=== PATIENT | male | born 1950 | race Hispanic/Latino ===

== ENCOUNTER 2020-01-27 12:04 | Emergency (ER) | payer MEDICARE, OTHER ==
[~2020-01-27] VITALS: Ht 170.2 cm; Wt 83.0 kg
--- NOTE | 2020-01-27 12:39 | Emergency Department Note ---
History of Present Illnes History of Present Illness Chief Complaint: COVID PUI History of Present Illness This is a 69 year old male hx of htn went to his PCP for regular check up 5 days ago, started on BP meds but he could not tolerate the side effect. He then lost his sense of smell 3 days ago, body ache, no f/c no SOB. Arrival Mode: Car Onset (how long ago): day(s) Radiation: Reports non-radiation Severity: moderate Onset quality: gradual Progression: waxing and waning Relieving factors: none Exacerbating factors: none Treatments prior to arrival: none Previous service: medications given Past Medical/Family History Physician Review I have reviewed the patient's past medical and family history. Any updates have been documented here. Past Medical History Past Medical History: Hypertension Past Surgical History: None Social History Smoking Cessation: Unknown if ever smoked Any Illegal Drug Use: No TB Exposure/Symptoms: No Physically hurt or threatened: No Family History Family history of heart diseas: No Review of Systems Review of Systems Constitutional: Reports malaise EENTM: Reports no symptoms Cardiovascular: Reports no symptoms Respiratory: Reports no symptoms Gastrointestinal: Reports no symptoms Genitourinary: Reports no symptoms Musculoskeletal: Reports no symptoms Integumentary: Reports no symptoms Neurological: Reports other (loss of taste for 3 days) Psychological: Reports no symptoms Endocrine: Reports no symptoms Hematological/Lymphatic: Reports no symptoms Physical Exam Related Data Vital signs reviewed: Yes Physical Exam CONSTITUTIONAL Constitutional: Present well-developed, Present well-nourished HENT HENT: Present normocephalic, Present atraumatic, Present oropharynx clear/moist, Present nose normal HENT L/R: Present left ext ear normal, Present right ext ear normal EYES Eyes: Reports PERRL, Reports conjunctivae normal NECK Neck: Present ROM normal PULMONARY Pulmonary: Present effort normal, Present breath sounds normal CARDIOVASCULAR Cardiovascular: Present regular rhythm, Present heart sounds normal, Present capillary refill normal, Present normal rate GASTROINTESTINAL Abdominal: Present soft, Present nontender, Present bowel sounds normal GENITOURINARY Genitourinary: Present exam deferred SKIN Skin: Present warm, Present dry MUSCULOSKELETAL Musculoskeletal: Present ROM normal NEUROLOGICAL Neurological: Present alert, Present oriented x 3, Present no gross motor or sensory deficits PSYCHOLOGICAL Psychological: Present mood/affect normal, Present judgement normal Results Laboratory Lab results reviewed: Yes Laboratory comments CBC OK Procedures 12 Lead ECG Interpretation ECG Interpretation : ECG: ECG 1 Land Surveyor Assistant: Interpreted by ED physician Date: Jan 27, 2020 Time: 12:38 Rhythm: sinus rhythm Rate: normal QRS axis: normal ST segments normal: Yes Other findings: LVH Clinical Impression: abnormal ECG Assessment & Plan Medical Decision Making MDM htn urgency Assessment & Plan Final Impression: (1) Hypertensive urgency (2) COVID-19 Depart Disposition: HOME, SELF-long term Meds Active Scripts Nifedipine (PROCARDIA XL) 30 Mg Tab.er.24, 30 MG PO DAILY, #60 TAB Prov:JAYMIE OTERO MD 01/27/20 Atenolol (ATENOLOL) 50 Mg Tablet, 1 TAB PO DAILY for 60 Days Prov:JAYMIE OTERO MD 01/27/20 JAYMIE OTERO MD Jan 27, 2020 12:39
[2020-01-27] MEDS ORDERED: DEXAMETHASONE SOD PHOS 10 MG/1 ML VIAL IV ONE (12:45)
[2020-01-27] MEDS ORDERED: HYDRALAZINE HCL 20 MG/ML VIAL IV ONE (12:45)
[2020-01-27] MEDS ORDERED: PROCARDIA XL30 MG PO (14:07)
[2020-01-27] MEDS ORDERED: ATENOLOL50 MG PO (14:07)
--- NOTE | 2020-01-27 14:14 | Diagnostic Imaging Report ---
EXAMINATION: CXR 1 VEW - HOPD INDICATION: Hypertension COMPARISON: None FINDINGS: LINES/TUBES:None LUNGS:The lungs are well-inflated. No focal consolidation or pulmonary edema. PLEURA:No pleural effusion or pneumothorax. MEDIASTINUM:The cardiomediastinal silhouette appears normal in size and shape. BONES/SOFT TISSUES:No acute osseous injury. ABDOMEN:No free air under the diaphragm. IMPRESSION: No focal pneumonia or pulmonary edema. Signed by: Reid Aguero MD on 01/27/2020 2:10 PM
[2020-01-27] MEDS ORDERED: POTASSIUM CHLORIDE 20 MEQ TAB CR PO STA (14:16)
[2020-01-27 17:17] VITALS: BP 182/89
--- NOTE | 2020-01-28 08:53 | NUR ---
Positive results called by Dr. Robb.
[2020-01-28] MEDS ORDERED: AMLODIPINE BESYLATE 10 MG TAB PO SCH (09:00)
== END 2020-01-27 15:44 | disposition home or self-care (01) ==
LOC: FSED 12:04
DX: U07.1 COVID-19 (principal); I16.0 Hypertensive urgency; R94.31 Abnormal electrocardiogram [ECG] [EKG]
CPT/HCPCS: 71045; 80053; 82553; 84484; 85025; 87635; 93005; 99284; J0360; J1100